=== PATIENT | male | born 1980 | race American Indian/Alaskan Native ===

== ENCOUNTER 2019-10-10 23:18 | Emergency (ER) | payer SELFPAY ==
[~2019-10-10 23:18] MED LIST: DEXTROSE 50% IN WATER (25GM) 50 ML SYRINGE IV ONE; EPINEPHrine 1:10,000 1 MG/10 ML SYRINGE ONE; SODIUM BICARB 8.4% 50 MEQ/50 ML SYRINGE IV ONE
[2019-10-10] MEDS ORDERED: INSULIN REGULAR, HUMAN 100 UNITS/1 ML ONE (23:37)
--- NOTE | 2019-10-11 00:57 | Emergency Department Report ---
ED General Adult HPI - General Stated complaint: CARDIAC ARREST Time Seen by Provider: 10/10/19 23:41 - History of Present Illness Initial comments: Patient presents to the emergency department in full cardiac arrest with the LMA placed. Per EMS there were call for patient who was unresponsive and with difficulty breathing. Upon arrival the patient was asystole ACLS protocols follow. LMA was placed. Patient received 2 shocks in route for reported V. fib. Patient has a history of congestive heart failure and diabetes. -: Sudden Severity scale (0 -10): 0 Improves with: none Worsens with: none Associated Symptoms: denies other symptoms Treatments Prior to Arrival: none - Related Data Previous Rx's Medication Instructions Recorded Last Taken Type Albuterol INH(or & Nicu Only) 2 puff IH QID PRN 30 Days 08/03/13 Unknown Rx [ProAir HFA Inhaler] inhalation lisinopriL [Zestril TAB] 10 mg PO QDAY #15 tablet 08/03/13 Unknown Rx oxyCODONE /ACETAMINOPHEN [Percocet 1 tab PO Q6HR PRN #15 tablet 08/03/13 Unknown Rx 5/325 mg] Allergies Allergy/AdvReac Type Severity Reaction Status Date / Time No Known Allergies Allergy Unverified 08/03/13 10:02 ED Review of Systems ROS: Stated complaint: CARDIAC ARREST Other details as noted in HPI Comment: Unobtainable due to pts medical conditions ED Past Medical Hx - Past Medical History Hx Hypertension: Yes Additional medical history: noncompliant with bp meds - Social History Smoking Status: Never Smoker - Medications Home Medications: Home Medications Medication Instructions Recorded Confirmed Last Taken Type Albuterol INH(or & Nicu Only) 2 puff IH QID PRN 30 Days 08/03/13 Unknown Rx [ProAir HFA Inhaler] inhalation lisinopriL [Zestril TAB] 10 mg PO QDAY #15 tablet 08/03/13 Unknown Rx oxyCODONE /ACETAMINOPHEN [Percocet 1 tab PO Q6HR PRN #15 tablet 08/03/13 Unknown Rx 5/325 mg] ED Physical Exam - General General appearance: other (asystole) - Head Head exam: Present: atraumatic, normocephalic - Eye Eye exam: Present: other (pupils fixed and dilated) - ENT ENT exam: Present: mucous membranes dry - Neck Neck exam: Present: normal inspection - Respiratory Respiratory exam: Present: other (bilateral breath sounds with bagging) - Cardiovascular Cardiovascular Exam: Present: other (asystole) - GI/Abdominal GI/Abdominal exam: Present: soft, distended, other (skin grafts present to the anterior abdominal wall) - Extremities Exam Extremities exam: Present: other (he'll grafting sites of bilateral upper legs; bilateral grafts to the dorsum aspect of the hands) - Neurological Exam Neurological exam: Present: other (GCS 3) - Psychiatric Psychiatric exam: Present: other (not able to assess due to the patient's condition) - Skin Skin exam: Present: warm, dry ED Medical Decision Making - Medical Decision Making ACLS protocol followed Please see code sheet Time of was [id number] After speaking with the patient's she states that he went to bed at approximately 10:00 and upon them follow asleep she states that he was breathing awkwardly and that she was checking on him he stopped breathing. Critical care attestation.: If time is entered above; I have spent that time in minutes in the direct care of this critically ill patient, excluding procedure time. ED Disposition Clinical Impression: Cardiac arrest Disposition: DC-20 Is pt being admited?: No Does the pt Need Aspirin: No Condition: Stable Referrals: PRIMARY CARE, [Primary Care Provider] - 3-5 Days
[2019-10-11] MEDS ORDERED: INSULIN REGULAR, HUMAN 100 UNITS/1 ML IV ONE (03:24)
== END 2019-10-11 03:16 ==
LOC: ED 23:18
DX: I46.9 Cardiac arrest, cause unspecified (principal)
CPT/HCPCS: 31500; 92950; 96374; 99285; J0171; J1815